=== PATIENT | female | born 1980 | race Caucasian/White ===

== ENCOUNTER 2019-04-23 18:22 | Emergency (ER) | payer BC, MEDICAID ==
[2019-04-23 18:52] LABS: ABSOLUTE LYMPHOCYTES (AUTO) 3.3 10^3/uL (0.5-4.7); ABSOLUTE MONOCYTES (AUTO) 0.6 10^3/uL (0.1-1.4); HEMOGLOBIN 10.7 g/dL (12.0-15.5); LYMPHOCYTES % (AUTO) 30.1 % (13-45); RED CELL DISTRIBUTION WIDTH 17.1 % (11.5-14.0); TOTAL CELLS COUNTED % (AUTO) 100 %
[2019-04-23 18:57] LABS: ABSOLUTE EOSINOPHILS # (AUTO) 0.2 10^3/uL (0.0-0.6); ABSOLUTE NEUT (AUTO) 6.8 10^3/uL (1.7-8.2); BASOPHILS % (AUTO) 0.4 % (0-2); EOSINOPHILS % (AUTO) 1.9 % (0-6); HEMATOCRIT 32.6 % (36.0-47.0); MEAN CORPUSCULAR HEMOGLOBIN 25.2 pg (27.0-33.4); MEAN CORPUSCULAR HGB CONC 32.9 g/dL (32.0-36.0); MEAN CORPUSCULAR VOLUME 77 fl (80-97); MONOCYTES % (AUTO) 5.4 % (3-13); PLATELET COUNT 342 10^3/uL (150-450); RED BLOOD COUNT 4.25 10^6/uL (3.72-5.28); SEGMENTED NEUTROPHILS % (AUTO) 62.2 % (42-78)
[2019-04-23 19:04] LABS: ALBUMIN 3.9 g/dL (3.5-5.0); ALKALINE PHOSPHATASE 93 U/L (38-126); ANION GAP 7 (5-19); ASPARTATE AMINO TRANSFERASE 20 U/L (14-36); BILIRUBIN,DIRECT 0.1 mg/dL (0.0-0.4); BILIRUBIN,TOTAL 0.4 mg/dL (0.2-1.3); BLOOD UREA NITROGEN 10 mg/dL (7-20); CALCIUM 9.1 mg/dL (8.4-10.2); CARBON DIOXIDE 28 mmol/L (22-30); CHLORIDE 104 mmol/L (98-107); CREATINE KINASE 71 U/L (30-135); GLUCOSE 115 mg/dL (75-110); POTASSIUM 3.3 mmol/L (3.6-5.0)
[2019-04-23 19:15] LABS: CREATINE KINASE MB 0.57 ng/mL (<4.55)
[2019-04-23 19:16] LABS: TROPONIN I < 0.012 ng/mL
--- NOTE | 2019-04-23 19:24 | RADIOLOGY REPORT (SQ) ---
EXAM DESCRIPTION: CHEST SINGLE VIEW COMPLETED DATE/TIME: 04/23/2019 7:15 pm REASON FOR STUDY: chest pain COMPARISON: 07/06/2009 EXAM PARAMETERS: NUMBER OF VIEWS: One view. TECHNIQUE: Single frontal radiographic view of the chest acquired. RADIATION DOSE: NA LIMITATIONS: None. FINDINGS: LUNGS AND PLEURA: No opacities, masses or pneumothorax. No pleural effusion. MEDIASTINUM AND HILAR STRUCTURES: No masses. Contour normal. HEART AND VASCULAR STRUCTURES: Cardiomegaly. BONES: No acute findings. HARDWARE: None in the chest. OTHER: No other significant finding. IMPRESSION: Cardiomegaly without acute abnormality of the lungs in frontal projection. TECHNICAL DOCUMENTATION: JOB ID: [id number] [employer]- All Rights Reserved Reading location - IP/workstation name: [email or web address]
--- NOTE | 2019-04-23 19:34 | ER Document Report ---
ED General - General Chief Complaint: Chest Pressure Stated Complaint: BLOOD PRESSURE CONCERN,CHEST PAIN Time Seen by Provider: 04/23/19 19:34 Primary Care Provider: PAOC PATTERSON MD [ACTIVE STAFF] - Follow up as needed TRAVEL OUTSIDE OF THE [place] IN LAST 30 DAYS: No - HPI Notes: 39-year-old female with a history of hypertension presents to the emergency department complaining of sudden onset dizziness, head pressure, chest pressure. Patient states she has had some intermittent dizziness for the past week. Patient is unable to relate this to changes and her position or and head movement. Patient denies chest pain or shortness of breath. Patient states that she used to be on blood pressure medication in the past when she was "heavier". Patient believes she was on lisinopril. Patient states that she went on a paly O diet in the past and lost some weight and was taken off the lisinopril. Patient states she has since gained weight back. Patient states that she stopped at "[id number] restaurant to get something to eat and noted that she had worsening of her dizziness during the period of time and when she went from the car into the restaurant, got her food and went back to the car. Patient states she started control pills approximately 2 months ago be cause she was having heavy periods. Differential diagnosis: Malignant hypertension, orthostatic hypotension, electrolyte abnormality, symptomatic hypertension, PE, ACS. Medical decision making: Will check EKG, chest x-ray, blood work including a d- dimer and magnesium. We will also check orthostatic vital signs. - Related Data Allergies/Adverse Reactions: latex [Latex] Allergy (Verified 06/08/14 22:35) Home Medications: meloxicam, junel ( control), citalopram Past Medical History - General Information source: Patient - Social History Smoking Status: Never Smoker Chew tobacco use (# tins/day): No Frequency of alcohol use: Rare Drug Abuse: None Family History: Reviewed & Not Pertinent Patient has suicidal ideation: No Patient has homicidal ideation: No - Past Medical History Cardiac Medical History: Reports: Hx Hypertension - Immunizations Hx Diphtheria, Pertussis, Tetanus Vaccination: Yes Review of Systems - Review of Systems -: Yes ROS unobtainable due to patient's medical condition Constitutional: No symptoms reported EENT: Other - [place] Cardiovascular: Other - Chest pressure Respiratory: No symptoms reported Gastrointestinal: No symptoms reported Genitourinary: No symptoms reported Female Genitourinary: No symptoms reported Musculoskeletal: No symptoms reported Skin: No symptoms reported Hematologic/Lymphatic: No symptoms reported Neurological/Psychological: Other - Dizziness -: Yes All other systems reviewed and negative Physical Exam - Vital signs Vitals: Pulse Ox 100 04/23/19 18:43 - Notes Notes: PHYSICAL EXAMINATION: GENERAL: Well-appearing, well-nourished and in no acute distress. HEAD: Atraumatic, normocephalic. EYES: Pupils equal round and reactive to light, extraocular movements intact, sclera anicteric, conjunctiva are normal. No horizontal or vertical nystagmus appreciated ENT: nares patent, oropharynx clear without exudates. Moist mucous membranes. NECK: Normal range of motion, supple without lymphadenopathy LUNGS: Breath sounds clear to auscultation bilaterally and equal. No wheezes rales or rhonchi. HEART: Regular rate and rhythm without murmurs ABDOMEN: Soft, nontender, normoactive bowel sounds. No guarding, no rebound. N o masses appreciated. EXTREMITIES: Normal range of motion, no pitting or edema. No cyanosis. NEUROLOGICAL: No focal neurological deficits. Moves all extremities spontaneously and on command. PSYCH: Normal mood, normal affect. SKIN: Warm, Dry, normal turgor, no rashes or lesions noted. Course - Re-evaluation Re-evalutation: 04/24/19 00:09 Patient without complaints at this time. - Vital Signs Vital signs: Temp Pulse Resp BP Pulse Ox 45 L 18 135/74 H 98 04/23/19 20:19 04/23/19 23:01 04/23/19 23:01 04/23/19 23:01 04/24/19 00:09 Vital signs reviewed by this MD. - Laboratory Result Diagrams: 04/23/19 18:37 04/23/19 18:37 Laboratory results interpreted by me: 04/23/19 04/23/19 04/23/19 18:37 18:37 18:37 WBC 11.0 H Hgb 10.7 L Hct 32.6 L MCV 77 L MCH 25.2 L RDW 17.1 H D-Dimer 0.95 H Potassium 3.3 L Glucose 115 H Urine Blood 04/23/19 19:29 WBC Hgb Hct MCV MCH RDW D-Dimer Potassium Glucose Urine Blood SMALL H 04/24/19 00:09 Lab results reviewed by this MD. - EKG Interpretation by Me Additional EKG results interpreted by me: 04/23/19 20:14 EKG performed on 04/23/2019 at 1827 hrs. findings: Sinus tachycardia, rate 106, bigeminy is present, axis is normal, nonspecific ST segments. Impression sinus tachycardia with bigeminy and nonspecific ST segments. Discharge - Discharge Clinical Impression: Dizziness, Borderline hypertension Condition: Good Disposition: HOME, SELF-CARE Additional Instructions: Return to the Emergency Department without delay if any worse. HOME CARE INSTRUCTIONS & INFORMATION: Thank you for choosing us for your medical needs. We hope you're satisfied with the care you received. After you leave, you must properly care for your problem and, at the same time, observe its progress. Any condition can change. Some illnesses can change rapidly over hours or days. If your condition worsens, return to the Emergency Department or see your physician promptly. ABOUT YOUR X-RAYS AND EKG'S: If you had an EKG or X-rays taken, they have been read by the Emergency Physician. The X-rays and EKG's will also be read by a Radiologist or Property Field Adjuster within 24 hours. If discrepancies are noted, you will be notified by telephone. Please be certain the ED has a correct telephone number & address where you can be reached. Also, realize that some fractures or abnormalities do not show up on initial X-rays. If your symptoms continue, see your physician. ABOUT YOUR LABORATORY TEST: If you had laboratory tests, the results have been reviewed by the Emergency Physician. Some test results (for example cultures) may not be available for several days. You will be contacted if any test result shows you need additional treatment. Please be certain the ED has a correct telephone number and address where you can be reached. ABOUT YOUR MEDICATIONS: You will receive instructions on how to take your medicine on the prescription label you receive. Additional information may be provided by the Pharmacy. If you have questions afterwards, call the ED for c larification or further instructions. Some prescribed medications may cause drowsiness. Do not perform tasks such as driving a car or operating machinery without consulting your Pharmacist. If you feel you need a refill of pain medication, your condition will need re-evaluation. Please do not call for a refill of any medication. ABOUT YOUR SIGNATURE: Signature of this document acknowledges to followin. Understanding that you received emergency treatment and that you may be released before al medical problems are known or treated. Please be certain the ED has a correct phone number & address where you can be reached. 2. Acknowledgement that you will arrange for follow-up care as recommended. 3. Authorization for the Emergency Physician to provide information to your follow-up Physician in order to maximize your care. AT ANY TIME, IF YOUR SYMPTOMS CHANGE SIGNIFICANTLY OR WORSEN OR YOU DEVELOP NEW SYMPTOMS, RETURN TO THE EMERGENCY DEPARTMENT IMMEDIATELY FOR RE-EVALUATION. OUR GOAL IS TO PROVIDE EXCELLENT MEDICAL CARE! WE HOPE THAT WE HAVE MET YOUR EXPECTATIONS DURING YOUR EMERGENCY DEPARTMENT VISIT AND THAT YOU FEEL YOU HAVE RECEIVED EXCELLENT CARE! Prescriptions: Lisinopril [Prinivil 10 mg Tablet] 10 mg PO DAILY #30 tablet Forms: Elevated Blood Pressure Referrals: PACO PATTERSON MD [ACTIVE STAFF] - Follow up as needed
[2019-04-23 20:09] LABS: APPEARANCE,URINE CLEAR; BILIRUBIN,URINE NEGATIVE (NEGATIVE); COLOR,URINE COLORLESS; GLUCOSE, URINE NEGATIVE (NEGATIVE); KETONES,URINE NEGATIVE (NEGATIVE); LEUKOCYTE ESTERASE,URINE NEGATIVE (NEGATIVE); NITRITE,URINE NEGATIVE (NEGATIVE); PROTEIN,URINE NEGATIVE (NEGATIVE); URINE SPECIFIC GRAVITY 1.004; UROBILINOGEN,URINE NEGATIVE mg/dL (<2.0)
[2019-04-23 20:24] LABS: URINE AMPHETAMINES SCREEN NEGATIVE; URINE BARBITURATES SCREEN NEGATIVE; URINE BENZODIAZEPINES SCREEN NEGATIVE; URINE COCAINE SCREEN NEGATIVE; URINE MARIJUANA (THC) SCREEN NEGATIVE; URINE METHADONE SCREEN NEGATIVE; URINE PHENCYCLIDINE SCREEN NEGATIVE
[2019-04-23] MEDS ORDERED: NORMAL SALINE 1000 ML 1,000 ML IV ONE (20:25)
[2019-04-23] MEDS ORDERED: POTASSIUM CHLORIDE 10 MEQ CAPSULE.ER PO ONE (20:56)
[2019-04-23] MEDS ORDERED: MAGNESIUM OXIDE 400 MG TABLET PO ONE (20:56)
--- NOTE | 2019-04-23 22:06 | RADIOLOGY REPORT (SQ) ---
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 COMPARISON: None. TECHNIQUE: CT angiogram of the chest with IV contrast. 3-D MIP images were obtained in coronal and sagittal reconstructions. This exam was performed according to our departmental dose-optimization program, which includes automated exposure control, adjustment of the mA and/or kV according to patient size and/or use of iterative reconstruction technique. FINDINGS: No filling defects are identified in the pulmonary trunk, main left and right pulmonary arteries, or the segmental branches. The thyroid gland is normal. No mediastinal or hilar adenopathy. The heart size is normal without pericardial effusion. The thoracic aorta is normal caliber. No consolidation, pleural effusion, or pneumothorax is identified. The visualized upper abdomen demonstrates no acute findings. No acute osseous findings are seen. IMPRESSION: No acute pulmonary embolism.
--- NOTE | 2019-04-23 23:07 | EKG REPORT ---
SEVERITY:- ABNORMAL ECG - SINUS TACHYCARDIA VENTRICULAR BIGEMINY CONSIDER POSTERIOR INFARCT : Confirmed by: Torsten Joshua MD 23-Apr-2019 23:06:35
[2019-04-24 00:33] VITALS: BP 133/86
== END 2019-04-24 00:37 | disposition home or self-care (01) ==
LOC: ER 18:22
DX: R03.0 Elevated blood-pressure reading, without diagnosis of hypertension (principal); R42 Dizziness and giddiness; R07.89 Other chest pain; H53.459 Other localized visual field defect, unspecified eye; R00.0 Tachycardia, unspecified; R00.8 Other abnormalities of heart beat; N92.0 Excessive and frequent menstruation with regular cycle; Z79.3 Long term (current) use of hormonal contraceptives; Z79.1 Long term (current) use of non-steroidal anti-inflammatories (NSAID); Z79.899 Other long term (current) drug therapy; Z91.040 Latex allergy status
CPT/HCPCS: 93005; 99284; 96360; 96361; 36415; 82553; 82550; 83735; 85025; 80053; 81001; 84484; 80307; 85379; 71045; 71275; 93010; J7030